=== PATIENT | female | born 1945 | race Hispanic/Latino ===

== ENCOUNTER 2019-04-14 09:02 | Emergency (ER) | payer MEDICARE ==
[2019-04-14] MEDS ORDERED: GUAIFENESIN SUGAR-FREE 100 MG/5 ML UDCUP ONE (09:43)
[2019-04-14] MEDS ORDERED: BENZONATATE 100 MG CAPSULE PO ONE (09:44)
== END 2019-04-14 10:16 | disposition home or self-care (01) ==
LOC: EDH 09:02
DX: J06.9 Acute upper respiratory infection, unspecified (principal); E11.9 Type 2 diabetes mellitus without complications; E78.00 Pure hypercholesterolemia, unspecified; Z72.0 Tobacco use
CPT/HCPCS: 71045; 87804

== ENCOUNTER 2022-03-15 01:07 | Emergency (ER) | payer OTHER, MEDICARE ==
[~2022-03-15] VITALS: Ht 157.5 cm; Wt 51.7 kg
[2022-03-15 01:22] VITALS: BP 163/56
[2022-03-15 02:12] LABS: BASOPHILS % (AUTO) 0.6 % (0.0-5.0); EOSINOPHILS % (AUTO) 2.1 % (0.0-8.0); LYMPHOCYTES % (AUTO) 15.9 % (21.0-51.0); MEAN CORPUSCULAR HEMOGLOBIN 27.6 pg (27.0-33.0); MEAN CORPUSCULAR HGB CONC 33.6 g/dL (32.0-36.0); MEAN CORPUSCULAR VOLUME 82.1 fL (79-99); MONOCYTES % (AUTO) 7.6 % (3.0-13.0); NEUTROPHILS % (AUTO) 73.4 % (40.0-77.0); PLATELET COUNT (AUTO) 349 K/uL (130-400); RED BLOOD CELL COUNT(AUTO) 4.02 MIL/uL (4.00-5.50); RED CELL DISTRIBUTION WIDTH 12.9 % (11.0-15.5); WHITE BLOOD COUNT (AUTO) 10.8 K/uL (4.8-10.8)
[2022-03-15 02:22] LABS: CREATININE 0.5 mg/dL (0.5-1.5); POTASSIUM 3.1 mmol/L (3.5-5.1)
[2022-03-15 02:29] LABS: ALBUMIN 2.7 g/dL (3.5-5.0); TOTAL PROTEIN, SERUM 7.3 g/dL (6.0-8.3)
[2022-03-15 02:34] LABS: APPEARANCE,URINE CLOUDY (CLEAR); BILIRUBIN,URINE NEGATIVE (NEGATIVE); COLOR,URINE LIGHT-YELLOW (YELLOW); GLUCOSE, URINE (UA) 50 mg/dL (NEGATIVE); KETONES,URINE NEGATIVE (NEGATIVE); LEUKOCYTE ESTERASE ,URINE 25 Leu/uL (NEGATIVE); NITRATE,URINE 2+ (NEGATIVE); OCCULT BLOOD,URINE NEGATIVE (NEGATIVE); PROTEIN,URINE NEGATIVE (NEGATIVE); UROBILINOGEN,URINE 0.2 mg/dL (0.2-1.0)
[2022-03-15 02:34] LABS: B-TYPE NATRIURETIC PEPTIDE 19 pg/mL (0-100)
[2022-03-15 02:49] LABS: BACTERIA,URINE Many /HPF (None Seen); RBC,URINE 0-1 /HPF (0-1); SQUAMOUS EPITHELIAL CELL,UR Moderate /HPF (0-2)
[2022-03-15] MEDS ORDERED: MORPHINE 2 MG SYG IVP ONE (04:30)
[2022-03-15] MEDS ORDERED: CEFTRIAXONE 1G VIAL IVP ONE (05:00)
[2022-03-15] MEDS ORDERED: KCL 20 MEQ ERTAB PO ONE (05:30)
[2022-03-15] MEDS ORDERED: CEFU500T67 PO (05:33)
== END 2022-03-15 05:48 | disposition home or self-care (01) ==
LOC: EDH 01:07
DX: M19.90 Unspecified osteoarthritis, unspecified site (principal); N39.0 Urinary tract infection, site not specified; R60.0 Localized edema; E11.9 Type 2 diabetes mellitus without complications; I10 Essential (primary) hypertension
CPT/HCPCS: 99285; 93970; 96374; 71045; 96375; 84484; 80053; 83880; 85025; 87077; 87088; 87186; 81001; 36415; 93005; J0696

== ENCOUNTER 2022-06-09 01:09 | Emergency (ER) | payer OTHER, MEDICARE ==
[~2022-06-09] VITALS: Ht 154.9 cm; Wt 61.7 kg
[~2022-06-09 01:09] MED LIST: CEFU500T67 PO
[2022-06-09] MEDS ORDERED: MAG-37 PO (01:44)
[2022-06-09] MEDS ORDERED: ESOM40CA PO (01:44)
[2022-06-09] MEDS ORDERED: MAG/ALUM/SIMETH 30 ML UDCUP PO ONE (02:00)
[2022-06-09] MEDS ORDERED: PANTOPRAZOLE 40 MG TAB DR PO SCH (02:00)
[2022-06-09] MEDS ORDERED: DICYCLOMINE HCL 10 MG/5 ML ML PO ONE (02:00)
[2022-06-09] MEDS ORDERED: LIDOCAINE HCL 2% VISCOUS 15 ML UDCUP PO ONE (02:00)
[2022-06-09 02:11] VITALS: BP 157/78
== END 2022-06-09 02:18 | disposition home or self-care (01) ==
LOC: EDH 01:09
DX: R07.89 Other chest pain (principal); K20.90 Esophagitis, unspecified without bleeding; E11.9 Type 2 diabetes mellitus without complications; I10 Essential (primary) hypertension; M19.90 Unspecified osteoarthritis, unspecified site

== ENCOUNTER 2022-06-16 22:44 | Emergency (ER) | payer OTHER, MEDICARE ==
[~2022-06-16] VITALS: Ht 154.9 cm; Wt 62.1 kg
[~2022-06-16 22:44] MED LIST changes: +ESOM40CA PO; +MAG-37 PO
[2022-06-16] MEDS ORDERED: LIDOCAINE HCL 2% VISCOUS 15 ML UDCUP ONE (23:02)
[2022-06-16] MEDS ORDERED: MAG/ALUM/SIMETH 30 ML UDCUP ONE (23:02)
[2022-06-16] MEDS ORDERED: MAG/ALUM/SIMETH 30 ML UDCUP PO ONE (23:30)
[2022-06-16] MEDS ORDERED: LIDOCAINE HCL 2% VISCOUS 15 ML UDCUP PO ONE (23:30)
[2022-06-17 00:28] VITALS: BP 136/72
== END 2022-06-17 00:29 | disposition home or self-care (01) ==
LOC: EDH 22:44
DX: K21.9 Gastro-esophageal reflux disease without esophagitis (principal); E11.9 Type 2 diabetes mellitus without complications; E78.00 Pure hypercholesterolemia, unspecified
CPT/HCPCS: 93005

== ENCOUNTER 2022-06-26 00:35 | Inpatient (IN) | payer OTHER, MEDICARE ==
[~2022-06-26] VITALS: Ht 154.9 cm; Wt 62.6 kg
[2022-06-26 01:09] LABS: BASOPHILS % (AUTO) 0.7 % (0.0-5.0); EOSINOPHILS % (AUTO) 3.2 % (0.0-8.0); HEMATOCRIT 38.5 % (36-48); LYMPHOCYTES % (AUTO) 23.6 % (21.0-51.0); MEAN CORPUSCULAR HEMOGLOBIN 25.7 pg (27.0-33.0); MEAN CORPUSCULAR HGB CONC 31.9 g/dL (32.0-36.0); MEAN CORPUSCULAR VOLUME 80.5 fL (79-99); MONOCYTES % (AUTO) 6.8 % (3.0-13.0); NEUTROPHILS % (AUTO) 65.4 % (40.0-77.0); PLATELET COUNT (AUTO) 340 K/uL (130-400); RED BLOOD CELL COUNT(AUTO) 4.78 MIL/uL (4.00-5.50); RED CELL DISTRIBUTION WIDTH 13.6 % (11.0-15.5); WHITE BLOOD COUNT (AUTO) 10.3 K/uL (4.8-10.8)
[2022-06-26 01:17] LABS: CREATININE 0.9 mg/dL (0.5-1.5); POTASSIUM 3.7 mmol/L (3.5-5.1)
[2022-06-26 01:21] LABS: ALBUMIN 3.1 g/dL (3.5-5.0); TOTAL PROTEIN, SERUM 7.8 g/dL (6.0-8.3)
[2022-06-26 01:25] LABS: INR 0.94 (0.85-1.15); PROTHROMBIN TIME 10.3 SEC (9.6-11.6)
[2022-06-26 01:27] LABS: PARTIAL THROMBOPLASTIN TIME 27.4 SEC (26.3-35.5)
[2022-06-26 01:31] LABS: APPEARANCE,URINE CLEAR (CLEAR); BILIRUBIN,URINE NEGATIVE (NEGATIVE); COLOR,URINE LIGHT-YELLOW (YELLOW); GLUCOSE, URINE (UA) NEGATIVE (NEGATIVE); KETONES,URINE NEGATIVE (NEGATIVE); LEUKOCYTE ESTERASE ,URINE 25 Leu/uL (NEGATIVE); NITRATE,URINE 2+ (NEGATIVE); OCCULT BLOOD,URINE NEGATIVE (NEGATIVE); PROTEIN,URINE NEGATIVE (NEGATIVE); UROBILINOGEN,URINE 0.2 mg/dL (0.2-1.0)
[2022-06-26 01:36] LABS: BACTERIA,URINE FEW /HPF (None Seen); MUCUS,URINE RARE LPF (None Seen); SQUAMOUS EPITHELIAL CELL,UR RARE /HPF (0-2)
[2022-06-26 02:36] VITALS: BP 154/55
[2022-06-26] MEDS ORDERED: LIDOCAINE HCL 2% VISCOUS 15 ML UDCUP ONE (03:42)
[2022-06-26] MEDS ORDERED: MAG/ALUM/SIMETH 30 ML UDCUP ONE (03:43)
[2022-06-26] MEDS ORDERED: ACETAMINOPHEN 325 MG TAB PO PRN ×2 (04:00)
[2022-06-26] MEDS ORDERED: MORPHINE 2 MG SYG IV PRN (04:00)
[2022-06-26] MEDS ORDERED: LIDOCAINE HCL 2% VISCOUS 15 ML UDCUP PO ONE (04:00)
[2022-06-26] MEDS ORDERED: ONDANSETRON 4MG INJ IV PRN (04:00)
[2022-06-26] MEDS ORDERED: NITROGLYCERIN 1GM OINT 1 INCH/1GM TD SCH (04:00)
[2022-06-26] MEDS ORDERED: ASPIRIN 81MG CHEW TAB PO ONE (04:00)
[2022-06-26] MEDS ORDERED: MORPHINE 4 MG SYG IV PRN (04:00)
[2022-06-26] MEDS ORDERED: FAMOTIDINE 20MG VIAL IV ONE (04:00)
[2022-06-26] MEDS ORDERED: MAG/ALUM/SIMETH 30 ML UDCUP PO ONE (04:00)
[2022-06-26] MEDS ORDERED: FAMOTIDINE 20MG TAB PO SCH (09:00)
[2022-06-26] MEDS ORDERED: ENOXAPARIN SODIUM 40 MG/0.4 ML SYRINGE SQ SCH (09:00)
[2022-06-26] MEDS ORDERED: ASPIRIN 81MG CHEW TAB PO SCH (09:00)
== END 2022-06-26 04:01 | disposition left against medical advice (07) | DRG 392 ==
LOC: EDH 00:35 → EDHIP 03:54 → EDH 04:14
PROVIDERS: ADMIT Internal Medicine; ATTEND Internal Medicine
DX: K21.9 Gastro-esophageal reflux disease without esophagitis (principal); R12 Heartburn; E78.00 Pure hypercholesterolemia, unspecified; E11.9 Type 2 diabetes mellitus without complications; R07.89 Other chest pain; Z53.29 Procedure and treatment not carried out because of patient's decision for other reasons; Z83.3 Family history of diabetes mellitus; Z82.49 Family history of ischemic heart disease and other diseases of the circulatory system
CPT/HCPCS: 36415; 71045; 80053; 81001; 83690; 83880; 84484; 85025; 85610; 85730; 87077; 87088; 87186; 93005; G0378